=== PATIENT | male | born 1950 | race Caucasian/White ===

== ENCOUNTER 2016-12-25 13:05 | Emergency (ER) | payer OTHER ==
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
[2016-12-25 14:41] VITALS: BP 122/86; PULSE 80; RESP 18; TEMP 97.9; O2SAT 99
== END 2016-12-25 15:00 | disposition home or self-care (01) ==
LOC: ED 13:05
DX: S09.90XA Unspecified injury of head, initial encounter (principal); V49.9XXA Car occupant (driver) (passenger) injured in unspecified traffic accident, initial encounter; Y92.410 Unspecified street and highway as the place of occurrence of the external cause; M54.2 Cervicalgia

== ENCOUNTER 2018-07-18 21:47 | Observation (INO) | payer MEDICARE ==
--- NOTE | 2018-07-18 22:00 | EDPD ---
HPI Stroke - General Time Seen by Provider: 07/18/18 21:48 Historian: Patient - History of Present Illness Narrative History of Present Illness (Free Text): 07/18/18 21:58 Ramon Gautam is a 67 year old male with past medical history of Parkinson's disease, herniated disk, and questionable TIA, who presents to the emergency department brought by EMS accompanied by complaining of weakness/muscle spasms/slow speech.According to normally with slow monotone speech from his Parkinsons which can worsen at times.States she was unable to have him ambulate which he normally does with a walker.Patients symptoms exacerbated in the afternoon intermittently improving with taking his medication.States patient used his last Nupro patch yesterday unable to receive more due to insurance reasons.She believes this caused his worsening symptoms.Patient currently awake alert moving all extremities slowly but equally.Denies any headache/chest pain/sob. Date:: 07/18/18 Time: 21:58 Onset:: This evening Timing: Currently Symptomatic Context: Sitting Associated Symptoms: Tremors Exacerbated by: Nothing Relieved by: Nothing - Location Location: Difficult to localize - Pain Assessment/Levels Maximum Severity: None rTPA Inclusion/Exclusion - Refusal of Treatment Patient Refused Treatment: No - Inclusion Criteria for Altepase All of the below criteria for inclusion were reviewed: Yes Patient is 18 years or Older: Yes The Clinical Diagnosis of Ischemic Stroke That is Causing a Potentially Disabling Neurological Deficit: Yes Time of Onset is Well Established to be Less Than 270 Minute Before Treatment Would Begin: Yes Risk/Benefit Discussed With Patient/Family Member Present: Yes - Exclusion Criteria for Altepase Current Intracranial Hemorrhage: No Subarachnoid hemorrhage: No Active Internal Bleeding: No Recent (within 3 months) Intracranial or Intraspinal Surgery: No Presence of intracranial conditions that may increase the risk of bleeding: Not Applicable Bleeding Diathesis Including but not limited to: Not Applicable Current Severe Uncontrolled Hypertension: No - Warning to TPA With Conditions Following Conditions Weighed Against Anticipated Benefit: No Past Medical History - Provider Review Nursing Documentation Reviewed: Yes - Infectious Disease Hx of Infectious Diseases: None - Neurological Hx Parkinson's Disease: Yes - Psychiatric Hx Substance Use: No Family/Social History - Family/Social History Family History: Non-Contributory - Review Nursing documentation reviewed.: Yes Allergies/Home Meds Allergies/Adverse Reactions: Allergies No Known Allergies Allergy (Verified 12/25/16 13:07) Home Medications: Home Meds Medication Instructions Recorded Confirmed Baclofen [Lioresal] 10 mg PO DAILY PRN 07/18/18 07/20/18 Buspirone HCl 30 mg PO DAILY 07/18/18 07/20/18 Carbidopa/Levodopa 1 tab PO HS 07/18/18 07/20/18 [Carbidopa-Levodopa 25-100 Tab] Carbidopa/Levodopa 2 tab PO Q4H 07/18/18 07/20/18 [Carbidopa-Levodopa 25-100 Tab] Mirtazapine [Remeron] 30 mg PO HS 07/18/18 07/20/18 QUEtiapine [Seroquel] 125 mg PO HS 07/18/18 07/20/18 Silodosin [Rapaflo] 8 mg PO DAILY 07/18/18 07/18/18 Venlafaxine [Effexor XR] 150 mg PO DAILY 07/18/18 07/20/18 clonazePAM [Klonopin] 1 mg PO TID 07/18/18 07/20/18 Aspirin [Ecotrin] 81 mg PO DAILY 07/19/18 07/20/18 Review of Systems - Physician Review All systems were reviewed & negative as marked: Yes - Review of Systems Constitutional: Normal. absent: Fevers Eyes: Normal ENT: Normal Respiratory: Normal. absent: SOB, Cough Cardiovascular: Normal. absent: Chest Pain Gastrointestinal: Normal. absent: Abdominal Pain, Diarrhea, Nausea, Vomiting Genitourinary Male: Normal. absent: Dysuria Musculoskeletal: Normal. absent: Back Pain Skin: Normal. absent: Rash Neurological: Speech Changes, Other (+Weakness ) Endocrine: Normal Hemo/Lymphatic: Normal Psychiatric: Normal ED Stroke Physical Exam Vital Signs Reviewed: Yes Temperature: Afebrile Blood Pressure: Normal Pulse: Regular Respiratory Rate: Normal Appearance: Positive for: Well-Appearing, Other (mask like facies) Pain Distress: None Mental Status: Positive for: Alert and Oriented X 3 Finger Stick Blood Glucose: 93 - Systems Exam Head: Present: Atraumatic, Normocephalic Pupils: Present: PERRL. No: Sluggish, Non-Reactive Extroacular Muscles: Present: EOMI Conjunctiva: Present: Normal Mouth: Present: Moist Mucous Membranes Neck: Present: Normal Range of Motion. No: Meningeal Signs, MIDLINE TENDERNESS, Paraspinal Tenderness Respiratory/Chest: Present: Clear to Auscultation, Good Air Exchange. No: Respiratory Distress, Accessory Muscle Use, Wheezes Cardiovascular: Present: Regular Rate and Rhythm, Normal S1, S2. No: Murmurs Abdomen: Present: Normal Bowel Sounds. No: Tenderness, Distention, Peritoneal Signs Back: Present: GCS, CN, SP Upper Extremity: Present: Normal Inspection. No: Cyanosis, Edema Lower Extremity: Present: Normal Inspection. No: Edema Neurologic: Present: GCS=15, CN II-XII Intact, Speech Normal (Clear speech), Motor Func Grossly Intact (resting tremors, dyskinesia in extremities. ), Normal Sensory Function. No: Facial Droop Skin: Present: Warm, Dry, Normal Color. No: Rashes Lymphatic: Present: OX3, NI, NC Psychiatric: Present: Alert, Oriented x 3 Medical Decision Making ED Course and Treatment: 07/18/18 21:58 Impression: 67 year old male was brought by EMS to the emergency department for weakness/muscle spasms/slow speech. Plan: -- Labs -- CT Head w/o contrast -- EKG -- CXR -- Reassess and disposition Prior Visits: Notes and results from previous visits were reviewed. Progress Notes: 07/18/18 21:58 Patient seen on arrival to emergency department. Code stroke called. Patient taken to CAT scan. 07/18/18 22:15 CT Head: BRAIN Chronic periventricular and subcortical microvascular disease is seen. VENTRICLES: There is generalized parenchymal atrophy noted as demonstrated by symmetrical dilatation of ventricles and sulci. ORBITS: The orbits are unremarkable. SINUSES AND MASTOIDS: The paranasal sinuses and mastoid air cells are clear. BONES: No fracture. SOFT TISSUES: Unremarkable. MISCELLANEOUS: No acute intracranial pathology. IMPRESSION: 1. There is generalized parenchymal atrophy. 2. Chronic periventricular and subcortical microvascular disease is seen. 3. No acute intracranial pathology. Electronically signed on Jul 18, 2018 10:15:49 PM EDT by: Jin Diehl M.D., ANGEL Certified By [facility] Fellowship Trained MRI and CT Specialist 07/18/18 22:23 Reviewed EKG, shows NSR at [address]/T changes. 07/18/18 22:[address] Landin, neurology, who is aware and agrees with plan. States patient is not a candidate for tPA due to clinical presentation probable Parkinsons exacerbation and subsequent resolution of symptoms. Recommends Aspirin at this time. 07/18/18 23:15 Chest X-ray reviewed, shows no acute process. 07/18/18 23:[address] Bhatia, who is aware and agrees with plan. Accepts patient into his service. Patient will go to telemetry observation. Request Dr. Saleem on consult. - Critical Care Critical Care Minutes: 30 minutes - Lab Interpretations I have reviewed the lab results: Yes - RAD Interpretation Timber Inspector: ED Physician, Radiologist - EKG Interpretation Interpreted by ED Physician: Yes Type: 12 lead EKG NIHSS Scale([place]) 2 Time Performed: 22:45 - How Severe is the Stoke Baseline Level of Consciousness: 0=Alert LOC to Questions: 0=Both comments correct LOC to commands: 0=Obeys both correctly Best Gaze: 0=Normal Visual: 0=No visual loss Facial: 0=Normal Motor Arm - Left: 0=No drift Motor Arm - Right: 0=No drift Motor Leg - Left: 0=No drift Motor Leg - Right: 0=No drift Limb Ataxia: 0=Absent Sensory: 0=Normal Best Language: 0=No aphasia Dysarthia: 0=Normal articulation Extinction & Inattention (Neglect): 0=Normal, no object Score: 0 Risk Level: No Stroke Risk - Scribe Statement The provider has reviewed the documentation as recorded by the Scribe Kristi Hilario All medical record entries made by the Scribe were at my direction and personally dictated by me. I have reviewed the chart and agree that the record accurately reflects my personal performance of the history, physical exam, medical decision making, and the department course for this patient. I have also personally directed, reviewed, and agree with the discharge instructions and disposition. NIHSS Scale ([place]) Time Performed: 21:58 - How Severe is the Stoke Baseline Level of Consciousness: 0=Alert LOC to Questions: 0=Both comments correct LOC to commands: 0=Obeys both correctly Best Gaze: 0=Normal Visual: 0=No visual loss Facial: 0=Normal Motor Arm - Left: 0=No drift Motor Arm - Right: 0=No drift Motor Leg - Left: 1=Drift before 5 sec Motor Leg - Right: 1=Drift before 5 sec Limb Ataxia: 0=Absent Sensory: 0=Normal Best Language: 0=No aphasia Dysarthia: 0=Normal articulation Extinction & Inattention (Neglect): 0=Normal, no object Score: 2 Risk Level: Minor Stroke Risk Disposition/Present on Arrival - Present on Arrival Any Indicators Present on Arrival: No History of DVT/PE: No History of Uncontrolled Diabetes: No Urinary Catheter: No History of Decub. Ulcer: No History Surgical Site Infection Following: None - Disposition Have Diagnosis and Disposition been Completed?: Yes Diagnosis: Parkinson disease, TIA (transient ischemic attack) Disposition: HOSPITALIZED Disposition Time: 23:20 Condition: STABLE
[2018-07-18] MEDS: Sodium Chloride 0.9% 1,000 ML IV SCH (22:20)
[2018-07-18 22:38] LABS: BASO # 0.03 K/mm3 (0.0-2.0); BASO % 0.4 % (0.0-3.0); EOS # 0.1 (0.0-0.7); EOS % 1.4 % (1.5-5.0); HEMOGLOBIN 15.3 g/dL (14.0-18.0); LYMPH # 1.5 (1.2-3.4); LYMPH % 18.4 % (22.0-35.0); MEAN CELL VOLUME 91.3 fl (80.0-105.0); MEAN CORPUSCULAR HEMOGLOBIN 30.4 pg (25.0-35.0); MEAN CORPUSCULAR HGB CONC 33.3 g/dl (31.0-37.0); MEAN PLATELET VOLUME 9.4 fl (7.0-11.0); MONO # 0.3 (0.1-0.6); MONO % 4.2 % (1.0-6.0); RBC 5.03 10^6/uL (3.5-6.1); RED CELL DISTRIBUTION WIDTH 13.1 % (11.5-14.5); WHITE BLOOD COUNT 8.1 10^3/uL (4.5-11.0)
[2018-07-18 22:47] LABS: INR 1.06; PARTIAL THROMBOPLASTIN TIME 30.6 Seconds (26.9-38.3); PROTHROMBIN TIME 11.8 SECONDS (9.4-12.5)
[2018-07-18 22:54] LABS: ALB/GLOB RATIO 1.3 (1.1-1.8); ALBUMIN 4.4 g/dL (3.0-4.8); ALT/SGPT 11 U/L (7-56); AST/SGOT 28 U/L (17-59); BLOOD UREA NITROGEN 32 mg/dL (7-21); CALCIUM 9.8 mg/dL (8.4-10.5); GFR NON-AFRICAN AMERICAN > 60; HDL CHOLESTEROL 43 mg/dL (29-60)
[2018-07-18 23:05] LABS: LDL CHOLESTEROL 138 mg/dL (0-129)
[2018-07-18 23:08] LABS: TROPONIN I < 0.01 ng/mL
[2018-07-19 01:23] VITALS: BMI 26.7
[2018-07-19] MEDS: Sodium Chloride 0.9% 1,000 ML IV SCH ×3 (06:34→18:05)
[2018-07-19] MEDS: Venlafaxine 75 mg ER Cap PO SCH (06:36)
[2018-07-19 07:45] LABS: BASO # 0.03 K/mm3 (0.0-2.0); BASO % 0.5 % (0.0-3.0); EOS # 0.1 (0.0-0.7); LYMPH # 1.7 (1.2-3.4); LYMPH % 28.6 % (22.0-35.0); MEAN CELL VOLUME 92.3 fl (80.0-105.0); MEAN CORPUSCULAR HEMOGLOBIN 29.4 pg (25.0-35.0); MEAN CORPUSCULAR HGB CONC 31.9 g/dl (31.0-37.0); MEAN PLATELET VOLUME 9.6 fl (7.0-11.0); MONO # 0.4 (0.1-0.6); MONO % 6.9 % (1.0-6.0); RBC 4.42 10^6/uL (3.5-6.1); RED CELL DISTRIBUTION WIDTH 12.9 % (11.5-14.5)
[2018-07-19 07:50] LABS: ALB/GLOB RATIO 1.3 (1.1-1.8); ALBUMIN 3.5 g/dL (3.0-4.8); ALT/SGPT 12 U/L (7-56); AST/SGOT 17 U/L (17-59); BLOOD UREA NITROGEN 28 mg/dL (7-21); CALCIUM 8.6 mg/dL (8.4-10.5); GFR NON-AFRICAN AMERICAN > 60
--- NOTE | 2018-07-19 07:52 | CT ---
Date of service: 07/18/2018 PROCEDURE: CT HEAD WITHOUT CONTRAST. HISTORY: Code Stroke COMPARISON: Noncontrast head CT 12/25/2016. TECHNIQUE: Axial computed tomography images were obtained through the head/brain without intravenous contrast. Radiation dose: Total exam DLP = 1053.09 mGy-cm. This CT exam was performed using one or more of the following dose reduction techniques: Automated exposure control, adjustment of the mA and/or kV according to patient size, and/or use of iterative reconstruction technique. FINDINGS: HEMORRHAGE: No intracranial hemorrhage. BRAIN: Normal gates-white matter differentiation and density are appreciated throughout the cerebrum and cerebellum with the brainstem appearing unremarkable as well. There is no mass effect. There is no suspicious extra-axial fluid collection and the midline brain anatomy appears diffusely unremarkable. VENTRICLES: Unremarkable. No hydrocephalus. CALVARIUM: Unremarkable. PARANASAL SINUSES: Unremarkable as visualized. No significant inflammatory changes. MASTOID AIR CELLS: Unremarkable as visualized. No inflammatory changes. OTHER FINDINGS: None. IMPRESSION: Unremarkable unenhanced head CT without significant interval change greater prior head CT 12/25/2016. Follow-up CT or MRI are recommended given clinical history of brain infarction. Preliminary report from [facility], 07/18/1909 15 p.m..
--- NOTE | 2018-07-19 08:16 | RAD ---
Date of service: 07/18/2018 HISTORY: Code Stroke COMPARISON: No prior. TECHNIQUE: 1 view obtained. FINDINGS: LUNGS: No active pulmonary disease. PLEURA: No significant pleural effusion identified, no pneumothorax apparent. CARDIOVASCULAR: No aortic atherosclerotic calcification present. Normal cardiac size. No pulmonary vascular congestion. OSSEOUS STRUCTURES: No significant abnormalities. VISUALIZED UPPER ABDOMEN: Mildly elevated right hemidiaphragm. OTHER FINDINGS: None. IMPRESSION: No acute infiltrate, pleural effusion or pneumothorax bilaterally. No pulmonary vascular congestion or cardiomegaly. Mild elevation right hemidiaphragm noted, etiology indeterminate.
[2018-07-19] MEDS ORDERED: NEUPRO TOP SCH (10:00)
[2018-07-19] MEDS ORDERED: NEUPRO 6 MG/24 HR TOP SCH ×2 (11:11→12:00)
[2018-07-19] MEDS: SILODOSIN 8 MG PO SCH ×2 (11:29→11:34)
--- NOTE | 2018-07-19 13:33 | CP.PCM.PCO ---
Additional Comments - Additional Comments Additional Comments: Patient with difficulty with ambulation as per PT, did bring medications, will reeval in am. PT rec acute rehab or [facility] if family refuses.
--- NOTE | 2018-07-19 17:30 | CON ---
DATE: 07/19/2018 NEUROLOGY CONSULT CHIEF COMPLAINT: Evaluation for his underlying Parkinson's disease. HISTORY OF PRESENT ILLNESS: This is a 67-year-old man with history of Parkinson's disease, on Sinemet 25 mg/100 mg every 2 hours and Sinemet 25/100 controlled release at night, history of herniated disk, TIA, came for worsening generalized weakness, muscle spasms, increased anxiety, and pressured speech. CAT scan of the head showed no acute intracranial abnormality, he ran out of his Neupro, which likely prompted his worsening symptoms and plus increased anxiety is due to since he is in the [employer] firm, it increased his tremors and gait freezing. He has features of extreme Parkinson's disease on neuro exam. He follows a neurologist at [place], which he will follow up as an outpatient, and also needs outpatient physical therapy for gait balance and muscles strengthening exercises. PAST MEDICAL HISTORY: As above. SOCIAL HISTORY: No illicit drug use, smoking, or EtOH abuse. REVIEW OF SYSTEMS: A 14-point review of systems is negative except per the HPI. FAMILY HISTORY: Noncontributory. MEDICATIONS: Reviewed by nurse's reconciliation sheet. ALLERGIES: NO KNOWN DRUG ALLERGIES. PHYSICAL EXAMINATION: VITAL SIGNS: Temperature is 98.2, pulse rate 87, and blood pressure 161/97. GENERAL: The patient is seen up in bed. Mask like facies. HEENT: Head is atraumatic and normocephalic. PERRLA. Extraocular muscles are intact. NECK: Supple. No JVD. No adenopathy noted. LUNGS: Clear to auscultation. No adventitious sounds. HEART: S1 and S2. Normal rate and rhythm. No murmurs, rubs, or gallops. ABDOMEN: Soft and nontender. Nondistended. Bowel sounds are present. EXTREMITIES: No clubbing. No cyanosis. Peripheral pulses are 2+ felt bilaterally. NEUROLOGIC: The patient is alert, oriented to person, place, and year. Recall after 5 minutes is 2/3. Poor attention span. Slow thought process. Has mask like facies. Speech is hypophonic, but no aphasia noted. Motor exam; increased tone throughout, he has cogwheel rigidity at both wrists bilaterally. Has increased resting tremor on the right hand wrist more than the left, and tremor of the chin. Sensory exam; light touch, pinprick, proprioception and vibration are intact. Moves all extremities equally. DTRs are 2+ throughout. Coordination; [id number] is intact. No dysmetria noted except for mild resting tremors in both hands, right worse than left. Moderate resting tremors on the right and mild on the left. Toes are downgoing bilaterally. Gait is deferred for now. LABORATORY DATA: Sodium is 142, potassium 3.8, chloride 109, carbon dioxide 28, BUN 28, creatinine 0.9, and random glucose 75. IMPRESSION: Worsening of Parkinson's disease, likely aggravated by underlying anxiety and depression, and running out of his Neupro patch. At this time, we will recommend: 1. Follow up with his neurologist at [facility] and continue his current doses of Sinemet of 25/100 p.o. every 2 hours as well as Sinemet controlled release 25/100 nightly, in addition to his Neupro patch, and we will recommend outpatient physical and occupational therapies with gait balance and muscle strengthening exercises, and we would recommend a psychiatric evaluation for his anxiety since his and he has been highly stressed. At this time, he is clinically stable. Thank you for this consult. Nigel Saleem MD
--- NOTE | 2018-07-19 17:37 | CON ---
DATE OF CONSULTATION: 07/19/2018 HISTORY OF PRESENT ILLNESS: The patient is a 67-year-old male with reported history of Parkinson's disease. The patient has a history of TIAs. The patient was brought in by EMS for evaluation of weakness, muscle spasm, and slow speech. Psych consult was called for evaluation of anxiety. The patient was seen and examined. The patient presented with flat affect, monotonic speech. Overall, the patient was alert and oriented. The patient reported that he is on psychotropic medication for his depression as well as anxiety, which is related to his Parkinson's disease. The patient reported to have transient feeling of hopelessness and helplessness. Denied any thoughts of harming himself or others. The patient denied history of suicidal attempts. The patient reports that he fills his medication in [facility], phone number is . The patient was prescribed following medications. Neupro patch 6 mg daily, Sinemet 25/100 twelve pills a day. The patient also is on Sinemet CR 25/100 one pill at the night time. The patient's neurologist, Dr. Pham filled those medications. The patient also was prescribed BuSpar 10 mg twice a day, Remeron 30 mg at the nighttime, Effexor 150 mg daily, clonazepam 1 mg three times a day, Seroquel 25 mg 5 pills at the nighttime by Dr. Small, psychiatrist. The patient also is on baclofen and Silodasin 8 mg daily. PHYSICAL EXAMINATION: VITAL SIGNS: Reviewed. Temperature 98.2, pulse is 87, blood pressure 161/97, respirations 20, oxygen saturation is 95. MEDICATIONS: Reviewed. The patient is on aspirin, baclofen, BuSpar 30 mg daily. The patient is on Sinemet, Klonopin 1 mg three times a day, Remeron 30 mg at the nighttime, and Seroquel 125 mg at the nighttime. LABORATORY DATA: Labs reviewed. Coagulation reviewed. Chemistry reviewed. MENTAL STATUS EXAMINATION: The patient presented to be alert, flat affect. Mood described as hopeless. Affect was flat, mood congruent, but the patient also has Parkinson's, mask face expression. Thought process, concrete. Thought content, the patient denied any hallucinations. The patient denied any thoughts of harming himself or others, but transient feeling of hopelessness. Insight and judgment seemed to be fair. Impulses are well controlled. IMPRESSION: Rule out mood disorder due to general medical condition, rule out anxiety disorder due to general medical condition. The patient has Parkinson's disease. PLAN: All medications were confirmed. The patient might benefit from ECT treatment for refractory Parkinson's as well as mood spectrum disorder as well as anxiety. We need to speak to the patient's family. The patient's , Concepcion, , will be contacted. Should you have any questions give me a call back. Thank you very much for letting me participate in care of your patient. Racquel Lawler MD MTDD
--- NOTE | 2018-07-19 19:01 | CARD ---
APPROVED REPORT Date of service: 07/18/2018 EKG Measurement Heart [id number] <Conclusion> Normal sinus rhythm Left axis deviation Poor R wave progression in Precordial leads Abnormal ECG
--- NOTE | 2018-07-19 20:31 | HP ---
DATE OF EXAM: 07/19/2018 HISTORY OF PRESENT ILLNESS: He is resting comfortably in bed right now. He comes in being a 67-year-old man with a past medical history of Parkinson's, herniated disc, questionable TIA in the past, who was brought in by EMS. stated who also takes care of him muscle weakness, muscle spasms, slowed speech. He uses a monotone speech as a baseline from his Parkinson's. This morning that she brought him in, he was unable to ambulate. He usually walks with a walker. Apparently, he is off his medications for about 24 hours. She was unable to get the medications she tells me. His symptoms got worse fairly quickly and when she called the police to help her, they called the ambulance and he was taken to the emergency room. He has had tremors, slow to talk due to the Parkinson's. 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 He still responds to questions due to his Parkinson's and off his medications. There was a code stroke I believe called on him due to his slowness of response and weakness, not being on his Parkinson's medications in the emergency room. FAMILY HISTORY: Unknown family history. ALLERGIES: NO KNOWN ALLERGIES. MEDICATIONS: He is on Lioresal, BuSpar, Sinemet, Remeron, Seroquel, Rapaflo, Effexor and Klonopin. REVIEW OF SYSTEMS: No fevers. No eye issues. No hearing issues. No throat issues. No shortness breath or cough. No chest pain or palpitations. No abdominal pain, nausea, vomiting, constipation or diarrhea. No problems urinating. No back pain. No rashes. He has speech changes and weakness since he has been off the medications. PHYSICAL EXAMINATION VITAL SIGNS: A 97.8 temperature, 103 pulse, 139/91 blood pressure and 95% O2 sat on 2 liters. HEENT: Head is atraumatic, normocephalic. Pupils equally reactive to light. Extraocular muscles are intact. Throat is dry. NECK: Supple. HEART: Regular rate. Normal S1, S2. LUNGS: Decreased breath sounds but clear to auscultation. ABDOMEN: Soft, nontender. Positive bowel sounds. No guarding, no rebound or CVA tenderness. EXTREMITIES: No edema of the extremities. NEUROLOGIC: GCS is 15. Slow to respond to all communication. No apparent distress. Cranial nerves II through XII grossly intact. Alert and oriented x3. SKIN: Warm and dry. Fair turgor. No apparent rashes or ulcers. LABORATORY DATA: EKG showed normal sinus rhythm at 92. Chest x-ray was clear. CT scan of the head was no acute process. Stroke; there is no stroke risk. He is in the hospital under observation level of care. We are getting him back on his medications as he is supposed to be on them. He has a 6 white count, 13 hemoglobin, 40.8 hematocrit with a 277 platelets. INR is 1.06. A 142 sodium, potassium 3.8, BUN 28, creatinine 0.9, GFR is greater than 60, sugar is 95, calcium is 8.6, total bili is 0.9, AST is 17, ALT is 12, alk phos 91. Troponin I is less than 0.01, total protein 6.3, albumin is 3.5, cholesterol is 214 a little high. IMPRESSION AND PLAN: Discussed at length with the . He will have a consult with Neurology and Psychiatry to do his medication list. I am hoping to possibly discharge him later today if we get him back on his medication and he is clinically physically improved. He is here for Parkinson's disease exacerbation. Gurinder Bhatia DO
[2018-07-19] MEDS ORDERED: Carbidopa/Levodopa 25/100 CR PO SCH (22:00)
[2018-07-20 05:24] VITALS: TEMP 97.4
[2018-07-20] MEDS: Sodium Chloride 0.9% 1,000 ML IV SCH (05:43)
[2018-07-20] MEDS: SILODOSIN 8 MG PO SCH (07:47)
[2018-07-20] MEDS: Venlafaxine 75 mg ER Cap PO SCH (08:14)
--- NOTE | 2018-07-20 10:58 | PN ---
DATE: 07/20/2018 SUBJECTIVE: He is resting comfortably in bed. He is talking much better than yesterday. I think beginning back on the medications has made a big difference for him. He is a little bit strong. He needs to have some physical therapy to see if he can balance and get home by himself safely. I am waiting for physical therapy today to have a look at him. If he does well, I will discharge him later. If not, we will have to make him inpatient and see how he does over the weekend. He wants to go home. He will take his medications. His is with him. The reason why they got to this situation is because they went out of medications for about two days. He is back on them now and getting better. PHYSICAL EXAMINATION: VITAL SIGNS: Temperature 97.4, pulse 76, blood pressure 124/80, respiratory rate 20, and 97% O2 saturation on nasal cannula. HEENT: Head is atraumatic and normocephalic. HEART: Regular rate. LUNGS: Decreased breath sounds. ABDOMEN: Soft. EXTREMITIES: No edema. He is just weak, stiff. LABORATORY DATA: His last blood sugar was 97, 142 sodium, potassium 3.8, BUN 20, creatinine 0.9, AST is 17, ALT is 12, alk phos 91. He has a 6 white counts, 13 hemoglobin, 44.8 hematocrit with 277 platelets. ASSESSMENT AND PLAN: He had Neuro and Psychiatry seen him. I am waiting for him to do well in physical therapy so I can discharge him. My goal is to him out later today with home health services. We will make him an inpatient and see how he does. Hopefully physical therapy will give me a thumbs up. Gurinder Bhatia DO
[2018-07-20 11:42] VITALS: BP 155/90; PULSE 69; RESP 16; O2SAT 98
--- NOTE | 2018-07-20 19:58 | PN ---
DATE: 07/20/2018 SUBJECTIVE: The patient was seen today. The patient's Concepcion next to the patient. The patient is willing to be interviewed in front of his . The patient reported that he still feels not good, but overall little better. The patient and were educated about options available. The patient and his were educated about option to have ECT treatment, which will be beneficial for the patient's depression as well as Parkinson's symptoms. The patient and were educated about risks, benefits and alternatives of that procedure. At present moment, the patient attends [facility] and they were following with neurologist back there. The patient was assessed for deep brain stimulation. The patient has followup appointment with neurologist as well as with the psychiatrist. The patient adamantly denied thoughts of harming himself or others, denied intent or plan. OBJECTIVE: VITAL SIGNS: Stable. MENTAL STATUS EXAM: The patient presented to be alert, flat affect. Mood described as anxious. Thought process concrete. Thought content, the patient denied visual, auditory or tactile hallucinations. The patient denied thoughts of harming himself or others. Denied intent or plan. Insight and judgment seems to be fair. Impulses are well controlled. MEDICATIONS: Reviewed. Medications were confirmed by the patient's pharmacy yesterday, please see yesterday's note for more detailed information. LABORATORY DATA: Reviewed. IMPRESSION: As per history, the patient has mood and anxiety due to general medical condition. PLAN: The patient has followup appointment with his neurologist at [facility]. The patient also has his psychiatrist whom he is seeing on regular basis. 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 The patient and his were educated about treatment options. They were appreciated. Meanwhile, there is no acute issues right now. This commercial lines underwriter will sign off. Should you have any questions, give me a call back. Racquel Lawler MD ROMANA
== END 2018-07-20 13:09 | disposition home or self-care (01) ==
LOC: ED 21:47 → ERH 23:30 → 2RSO 07-19 00:17
PROVIDERS: ADMIT Family Medicine; ATTEND Family Medicine
DX: G20 Parkinson's disease (principal); M62.838 Other muscle spasm; F06.4 Anxiety disorder due to known physiological condition; F06.30 Mood disorder due to known physiological condition, unspecified; F32.9 Major depressive disorder, single episode, unspecified; Z86.73 Personal history of transient ischemic attack (TIA), and cerebral infarction without residual deficits; Z79.82 Long term (current) use of aspirin
CPT/HCPCS: 36415; 70450; 71045; 80053; 80061; 82948; 83036; 84484; 85025; 85610; 85730; 86850; 86900; 92610; 93005; 96374; 96376; 97116; 97162; 97530; 99284; G0378; G8978; G8979; G8996; G8997; J2060; J7030